=== PATIENT | male | born 1950 | race Caucasian/White ===

== ENCOUNTER 2020-10-08 13:55 | Emergency (ER) | payer MEDICARE, MEDICAID ==
--- NOTE | 2020-10-08 14:34 | EDM.PDOC ---
ED HPI GENERAL MEDICAL PROBLEM - General Chief Complaint: General Stated Complaint: pain with suprapubic cath Time Seen by Provider: 10/08/20 14:20 Source of Information: Reports: Half-Way Records, RN History Limitations: Reports: Altered Mental Status - History of Present Illness INITIAL COMMENTS - FREE TEXT/NARRATIVE: This patient is a 70 year old male that presents to the ER from the long-term. Patient was transported by long-term van staff. My report is from the FORENSICS TEAM DIRECTOR and nurse documentation from long-term. The patient has history of being nonverbal and will rarely respond with yes or no per RN. The long-term staff reports that last night they changed the suprapubic catheter of this patient. Then today, the patient was pointing at the location, so they changed it again at about 1pm. They report the catheter advanced without issue and got urine return. long-term staff reports the patent even after placement that he continued to point at the site and groan. Staff reports the patient after placement had oxygen saturation of 88% and was purse lip breathing, looked pale, diaphoretic, so they brought him to the ER. Patient is a DNR. Onset: Today Duration: Hour(s): (3) Improves with: Reports: None Worsens with: Reports: None Associated Symptoms: Reports: Diaphoresis. Denies: Fever/Chills, Nausea/Vomiting, Rash, Seizure - Related Data Allergies Allergy/AdvReac Type Severity Reaction Status Date / Time No Known Allergies Allergy Verified 10/08/20 14:09 Home Meds: Home Meds Acetaminophen [Tylenol] 650 mg PO QID 10/08/20 [History] Aspirin [Aspirin EC] 81 mg PO DAILY 10/08/20 [History] Diclofenac Sodium [Diclo Gel] 4 gm TOP BID 10/08/20 [History] Levothyroxine 112 mcg PO DAILY 10/08/20 [History] Magnesium Hydroxide [Milk of Magnesia] 30 ml PO DAILY PRN 10/08/20 [History] Sennosides/Docusate Sodium [Stool Softener-Laxative] 1 tab PO BID 10/08/20 [History] atorvaSTATin [Lipitor] 20 mg PO DAILY 10/08/20 [History] bisacodyL [Dulcolax] 10 mg RECTAL DAILY PRN 10/08/20 [History] calcitrioL [Calcitriol] 0.25 mcg PO DAILY 10/08/20 [History] lisinopriL [Lisinopril] 10 mg PO DAILY 10/08/20 [History] polyethylene glycoL 3350 [Polyethylene Glycol 3350] 17 gm PO DAILY 10/08/20 [History] traMADol HCl [Tramadol HCl] 25 mg PO BID 10/08/20 [History] Social & Family History - Tobacco Use Tobacco Use Status *Q: Unknown Ever Used Tobacco ED ROS GENERAL - Review of Systems Review Of Systems: See Below Constitutional: Reports: No Symptoms. Denies: Fever HEENT: Reports: No Symptoms Respiratory: Reports: No Symptoms Cardiovascular: Reports: No Symptoms Endocrine: Reports: No Symptoms GI/Abdominal: Reports: Abdominal Pain (pointing at catheter site per nrusing home staff) : Reports: No Symptoms Musculoskeletal: Reports: No Symptoms Skin: Reports: Diaphoresis (resolved), Change in Color (pale, resolved) Neurological: Reports: No Symptoms Psychiatric: Reports: No Symptoms Hematologic/Lymphatic: Reports: No Symptoms Immunologic: Reports: No Symptoms ED EXAM, GENERAL - Physical Exam Exam: See Below Exam Limited By: Altered Mental Status General Appearance: Obese, Other (sitting in wheelchair, nonverbal, does eye open with touch.) Eye Exam: Bilateral Eye: Normal Inspection, PERRL Ears: Normal External Exam, Normal Canal, Hearing Grossly Normal, Normal TMs Ear Exam: Bilateral Ear: Auricle Normal, Canal Normal, TM normal Nose: Normal Inspection, Normal Mucosa, No Blood Throat/Mouth: Normal Inspection, Normal Lips, Normal Gums, Normal Oropharynx, Normal Voice, No Airway Compromise Head: Atraumatic, Normocephalic Neck: Normal Inspection, Supple, Non-Tender Respiratory/Chest: No Respiratory Distress, Lungs Clear, Normal Breath Sounds, No Accessory Muscle Use Cardiovascular: Normal Peripheral Pulses, Regular Rate, Rhythm (96 on exam), No Edema, No Gallop Peripheral Pulses: 2+: Radial (L), Radial (R), Posterior Tibial (L), Posterior Tibial (R), Dorsalis Pedis (L), Dorsalis Pedis (R) GI/Abdominal: Soft, Non-Tender, Other (suprapubic catheter, in place, urine draining, bright red blood scant in catheter. ) (Male) Exam: Deferred Rectal (Males) Exam: Deferred Back Exam: Normal Inspection. No: CVA Tenderness (L), CVA Tenderness (R) Extremities: Normal Inspection, Non-Tender, No Pedal Edema, Normal Capillary Refill Neurological: Other (Nonverbal, eyes open with touch. This is patient baseline per RN and staff. Also, eye opens spontaneously. ) Psychiatric: Normal Affect, Normal Mood Skin Exam: Warm, Dry, Intact, Normal Color, No Rash Lymphatic: No Adenopathy Course - Vital Signs Last Recorded V/S: Last Vital Signs Temp 96.0 F L 10/08/20 13:55 Pulse 108 H 10/08/20 13:55 Resp 20 10/08/20 13:55 BP 156/91 H 10/08/20 13:55 Pulse Ox 98 10/08/20 13:55 - Orders/Labs/Meds Orders: Active Orders 24 hr Category Date Time Status CULTURE URINE [RM] Stat Lab 10/08/20 14:32 Received Labs: Laboratory Tests 10/08/20 10/08/20 10/08/20 Range/Units 14:07 14:07 14:07 WBC 10.2 (4.0-11.0) 10^3/uL RBC 4.63 (4.50-6.00) x10^6/uL Hgb 14.0 (14.0-18.0) g/dL Hct 42.3 (42.0-52.0) % MCV 91.4 (83.0-97.0) fL MCH 30.2 (27.0-32.0) pg MCHC 33.1 (32.0-36.0) g/dL RDW Coeff of Noe 13.2 (11.0-15.0) % Plt Count 226 (150-400) 10^3/uL Immature Gran % (Auto) 0.1 (0.0-4.9) % Neut % (Auto) 88.0 H (41-71) % Lymph % (Auto) 7.9 L (24-44) % [place] % (Auto) 3.9 (0-10) % Eos % (Auto) 0.0 (0-6) % Baso % (Auto) 0.1 (0-1) % Neut # (Auto) 8.97 H (1.80-8.00) x10^3/uL Lymph # (Auto) 0.80 (0.60-5.00) 10^3/uL [place] # (Auto) 0.40 (0.00-1.50) 10^3/uL Eos # (Auto) 0.00 (0.00-1.50) 10^3/uL Baso # (Auto) 0.01 (0.00-0.50) 10^3/uL Immature Gran # (Auto) 0.01 (0.00-0.49) 10^3/uL Sodium 138 (136-145) mEq/L Potassium 4.9 D (3.5-5.0) mEq/L Chloride 98 (98-106) mEq/L Carbon Dioxide 27 (21-32) mmol/L BUN 23 H (7-18) mg/dL Creatinine 1.4 H (0.7-1.3) mg/dL Est Cr Clr Drug Dosing 38.38 mL/min Estimated GFR (MDRD) 50 L (>=60) mL/min Glucose 165 H D (75-99) mg/dL Calcium 8.5 (8.4-10.1) mg/dL Total Bilirubin 0.7 (0.0-1.0) mg/dL AST 23 (15-37) U/L ALT 17 (12-78) U/L Alkaline Phosphatase 104 (46-116) U/L C-Reactive Protein 1.9 H (0.2-0.8) mg/dL Total Protein 8.0 (6.4-8.2) g/dL Albumin 3.2 L (3.4-5.0) g/dL Urine Color Yellow (YELLOW) Urine Appearance Slightly cloudy (CLEAR) Urine pH 5.5 (4.5-8.0) Ur Specific [place] >= 1.030 H (1.003-1.020) Urine Protein >=300 H (NEGATIVE) mg/dL Urine Glucose (UA) 250 H (NEGATIVE) mg/dL Urine Ketones Negative (NEGATIVE) mg/dL Urine Occult Blood Large H (NEGATIVE) Urine Nitrite Negative (NEGATIVE) Urine Bilirubin Negative (NEGATIVE) Urine Urobilinogen 0.2 (0.2-1.0) EU/dL Ur Leukocyte Esterase Small H (NEGATIVE) Urine RBC 40-50 H (0-5) /HPF Urine WBC 30-40 H (0-5) /HPF Urine Bacteria Moderate H (NOT SEEN) /HPF Urinalysis Comment Meds: Medications Discontinued Medications Generic Name Dose Route Start Last Admin Trade Name Freq PRN Reason Stop Dose Admin Levofloxacin 500 mg 10/08/20 14:41 Levofloxacin 500 Mg Tab PO 10/08/20 14:42 ONETIME ONE - Re-Assessments/Exams Free Text/Narrative Re-Assessment/Exam: 10/08/20 14:48 Patient has no fever, no wbc elevation, no hypotension. No changes in patient baseline mental status as reported. Patient is at long-term with nursing staff and is a DNR. Will start on PO Levaquin and discharge to the long-term. If patient mental status changes, fever, hypotension, may return if wish to do so. Patient took PO Levaquin in ER without difficulty. Departure - Departure Time of Disposition: 14:50 Disposition: Home, Self-Care 01 Condition: Fair Clinical Impression: UTI, Urinary tract infectious disease - Discharge Information *PRESCRIPTION DRUG MONITORING PROGRAM REVIEWED*: Not Applicable *COPY OF PRESCRIPTION DRUG MONITORING REPORT IN PATIENT LETTY: Not Applicable Instructions: Urinary Tract Infection, Adult, [id number] Forms: ED Department Discharge Additional Instructions: Followup with your primary care provider for recheck this week Return to the ER for worsening of condition or any emergent concerns such as change in mental status, fever, vomiting, or other concerns Urine was sent for culture, please check with primary care provider in 48 hours for results Push fluids Levaquin 500mg 1 pill once a day for 7 days total #6 no refill: Was given #1 in ER Sepsis Event Note (ED) - Evaluation Sepsis Screening Result: No Definite Risk - Focused Exam Vital Signs: Vital Signs Temp Pulse Resp BP Pulse Ox 10/08/20 13:55 96.0 F L 108 H 20 156/91 H 98 - My Orders Last 24 Hours: My Active Orders 10/08/20 14:32 CULTURE URINE [RM] Stat - Assessment/Plan Last 24 Hours: My Active Orders 10/08/20 14:32 CULTURE URINE [RM] Stat Plan: PLEASE SEE RN NOTE FOR PFSH
[2020-10-08] MEDS: Levofloxacin 500 MG Tab PO ONE (14:45)
== END 2020-10-08 15:10 | disposition home or self-care (01) ==
LOC: CC.ED 13:55
DX: N39.0 Urinary tract infection, site not specified (principal); Z79.82 Long term (current) use of aspirin; Z79.899 Other long term (current) drug therapy
CPT/HCPCS: 36415; 80053; 81001; 85025; 86140; 87086; 87088; 87186; 99283; 99284; A9270-GY

== ENCOUNTER 2021-08-22 14:13 | Inpatient (IN) | payer MEDICARE, MEDICAID ==
[2021-08-22] MEDS ORDERED: Sodium Chloride 0.9% 10 ML Syringe FLUSH PRN (17:32)
[2021-08-22] MEDS ORDERED: Ondansetron 4 MG/2 ML SDV IV PRN (17:32)
[2021-08-22] MEDS ORDERED: Acetaminophen 325 MG Tab PO PRN (17:32)
[2021-08-22] MEDS: Amoxicillin 500 MG Cap PO SCH (17:45)
[2021-08-22] MEDS: cefTAZidime 1 GM Vial IVPUSH SCH (17:45)
[2021-08-22 18:36] LABS: CHLORIDE,CL 103 mEq/L (98-106); SODIUM,NA 142 mEq/L (136-145)
[2021-08-22] MEDS ORDERED: DICLOFENAC SODIUM TOP SCH (20:00)
[2021-08-22] MEDS: Acetaminophen 325 MG Tab PO SCH (20:03)
[2021-08-22] MEDS: traMADol 50 MG Tab PO SCH (20:04)
[2021-08-22] MEDS: atorvaSTATin 10 MG Tab PO SCH (20:05)
[2021-08-22] MEDS: Nystatin Topical Powder 15 GM Bottle TOP SCH (20:06)
[2021-08-23] MEDS: Amoxicillin 500 MG Cap PO SCH ×2 (05:05→19:54)
[2021-08-23] MEDS: cefTAZidime 1 GM Vial IVPUSH SCH ×2 (05:05→19:51)
[2021-08-23] MEDS: Acetaminophen 325 MG Tab PO SCH ×4 (08:11→19:56)
[2021-08-23] MEDS: Aspirin 81 MG Tab.EC PO SCH (08:12)
[2021-08-23] MEDS: Hydrochlorothiazide 25 MG Tab PO SCH (08:12)
[2021-08-23] MEDS: Lisinopril 10 MG Tab PO SCH (08:13)
[2021-08-23] MEDS: Nystatin Topical Powder 15 GM Bottle TOP SCH ×2 (08:13→19:55)
[2021-08-23] MEDS: Levothyroxine 112 MCG Tab PO SCH (08:13)
[2021-08-23] MEDS: traMADol 50 MG Tab PO SCH ×2 (08:14→19:57)
[2021-08-23] MEDS: Calcitriol 0.25 MCG Cap PO SCH (08:14)
[2021-08-23] MEDS: Polyethylene Glycol 3350 Powder 17 GM Packet PO SCH (08:20)
[2021-08-23] MEDS: Enoxaparin 40 MG/0.4 ML Syringe SUBCUT SCH (12:08)
[2021-08-23] MEDS: atorvaSTATin 10 MG Tab PO SCH (19:55)
[2021-08-24] MEDS: cefTAZidime 1 GM Vial IVPUSH SCH (08:54)
[2021-08-24] MEDS: Nystatin Topical Powder 15 GM Bottle TOP SCH (08:57)
[2021-08-24] MEDS: Aspirin 81 MG Tab.EC PO SCH (08:58)
[2021-08-24] MEDS: Amoxicillin 500 MG Cap PO SCH (08:58)
[2021-08-24] MEDS: Calcitriol 0.25 MCG Cap PO SCH ×2 (08:58→10:27)
[2021-08-24] MEDS: Hydrochlorothiazide 25 MG Tab PO SCH (08:58)
[2021-08-24] MEDS: Acetaminophen 325 MG Tab PO SCH ×2 (08:59→12:41)
[2021-08-24] MEDS: Levothyroxine 112 MCG Tab PO SCH (08:59)
[2021-08-24] MEDS: Lisinopril 10 MG Tab PO SCH (08:59)
[2021-08-24] MEDS: traMADol 50 MG Tab PO SCH (08:59)
[2021-08-24] MEDS: Polyethylene Glycol 3350 Powder 17 GM Packet PO SCH (09:00)
[2021-08-24] MEDS: Enoxaparin 40 MG/0.4 ML Syringe SUBCUT SCH (12:38)
== END 2021-08-24 13:30 | disposition home or self-care (01) | DRG 690 ==
LOC: UNDOADMIN 14:13 → CC.MS 14:13
PROVIDERS: ADMIT Nurse Practitioner Family; ATTEND Nurse Practitioner Family
DX: N39.0 Urinary tract infection, site not specified (principal); H91.90 Unspecified hearing loss, unspecified ear; E78.00 Pure hypercholesterolemia, unspecified; I10 Essential (primary) hypertension; B96.5 Pseudomonas (aeruginosa) (mallei) (pseudomallei) as the cause of diseases classified elsewhere; I73.9 Peripheral vascular disease, unspecified; K59.09 Other constipation; N18.9 Chronic kidney disease, unspecified; N31.9 Neuromuscular dysfunction of bladder, unspecified; M19.90 Unspecified osteoarthritis, unspecified site; R62.50 Unspecified lack of expected normal physiological development in childhood; F81.9 Developmental disorder of scholastic skills, unspecified; E03.9 Hypothyroidism, unspecified; B95.2 Enterococcus as the cause of diseases classified elsewhere; Z79.82 Long term (current) use of aspirin; Z79.899 Other long term (current) drug therapy; Z79.890 Hormone replacement therapy
CPT/HCPCS: 36415; 80053; 85025; 86140; 99223; 99233; 99239; A9270-GY; J0713; J1650

== ENCOUNTER → 2022-09-12 | Day surgery (SDC) | payer MEDICARE, MEDICAID ==
[~2022-09-12] MED LIST: Flumazenil 0.1 MG/ML 10 ML MDV ONE; Labetalol 100 MG/20 ML MDV ONE; Lidocaine 2% 5 ML SDV ONE; Midazolam 1 MG/ML 2 ML SDV ONE; Naloxone 2 MG/2 ML Syringe ONE; Phenylephrine 1% 10 MG/ML SDV ONE; Propofol 200 MG/20 ML SDV ONE; Succinylcholine 200 MG/10 ML MDV ONE; fentaNYL 50 MCG/ML SDV ONE
[2022-09-12] MEDS: Lactated Ringers 1,000 ML IV SCH (11:22)
== END ==
LOC: CC.SDS 10:17
PROVIDERS: ATTEND Dentist General Practice
DX: K02.9 Dental caries, unspecified (principal); E78.5 Hyperlipidemia, unspecified; E83.51 Hypocalcemia; E03.9 Hypothyroidism, unspecified; R41.82 Altered mental status, unspecified; N32.81 Overactive bladder; Z79.82 Long term (current) use of aspirin; Z79.899 Other long term (current) drug therapy; Z79.890 Hormone replacement therapy
CPT/HCPCS: 00170; 99100; J0330; J2250; J2310; J2370; J2704; J3010; J3490; J7120

== ENCOUNTER 2022-12-14 11:40 | Emergency (ER) | payer MEDICARE, MEDICAID ==
[2022-12-14 12:18] LABS: BASOPHILS ABSOLUTE AUTO 0.03 10^3/uL (0.00-0.50); BASOPHILS PERCENT AUTO 0.6 % (0-1); EOSINOPHILS ABSOLUTE AUTO 0.01 10^3/uL (0.00-1.50); EOSINOPHILS PERCENT AUTO 0.2 % (0-6); HEMATOCRIT 50.5 % (42.0-52.0); HEMOGLOBIN 16.9 g/dL (14.0-18.0); LYMPHOCYTES ABSOLUTE AUTO 1.79 10^3/uL (0.60-5.00); LYMPHOCYTES PERCENT AUTO 34.6 % (24-44); MEAN CORPUSCULAR HEMOGLOBIN 28.9 pg (27.0-32.0); MEAN CORPUSCULAR HGB CONC 33.5 g/dL (32.0-36.0); MEAN CORPUSCULAR VOLUME 86.5 fL (83.0-97.0); MONOCYTES ABSOLUTE AUTO 0.86 10^3/uL (0.00-1.50); MONOCYTES PERCENT AUTO 16.6 % (0-10); NEUTROPHILS ABSOLUTE AUTO 2.49 x10^3/uL (1.80-8.00); PLATELET COUNT,PLT 168 10^3/uL (150-400); RED BLOOD CELL COUNT 5.84 x10^6/uL (4.50-6.00); WHITE BLOOD CELL COUNT,WBC 5.2 10^3/uL (4.0-11.0)
[2022-12-14 12:41] LABS: ALANINE AMINOTRANSFERASE,ALT 75 U/L (12-78); ALBUMIN 3.4 g/dL (3.4-5.0); ALKALINE PHOSPHATASE 95 U/L (46-116); ASPARTATE AMNIOTRANSFERASE,AST 79 U/L (15-37); BILIRUBIN TOTAL 0.4 mg/dL (0.0-1.0); BLOOD UREA NITROGEN,BUN 30 mg/dL (7-18); C-REACTIVE PROTEIN 4.19 mg/dL (<=0.30); CARBON DIOXIDE,CO2 28 mmol/L (21-32); CHLORIDE,CL 99 mEq/L (98-106); CREATININE 1.8 mg/dL (0.7-1.3); ESTIMATED GFR 39 mL/min (>=60); GLUCOSE RANDOM 136 mg/dL (75-99); MAGNESIUM 2.1 mg/dL (1.8-2.4); PROTEIN TOTAL,TP 8.4 g/dL (6.4-8.2); SODIUM,NA 138 mEq/L (136-145)
[2022-12-14 13:41] LABS: APPEARANCE,URINE CLEAR (CLEAR); BILIRUBIN,URINE NEGATIVE (NEGATIVE); COLOR,URINE YELLOW (YELLOW); GLUCOSE,URINE NEGATIVE (NEGATIVE); KETONES,URINE NEGATIVE (NEGATIVE); LEUKOCYTE ESTERASE,URINE SMALL (NEGATIVE); NITRITE,URINE NEGATIVE (NEGATIVE); OCCULT BLOOD,URINE LARGE (NEGATIVE); PH,URINE 5.5 (4.5-8.0); PROTEIN,URINE 100 mg/dL (NEGATIVE); UROBILINOGEN,URINE 0.2 EU/dL (0.2-1.0)
[2022-12-14 13:49] LABS: BACTERIA,URINE OCCASIONAL /HPF (NOT SEEN); EPITHELIAL CELLS,URINE OCCASIONAL /HPF (NOT SEEN); RBC,URINE 50-75 /HPF (0-5); WBC,URINE 0-5 /HPF (0-5)
[2022-12-14] MEDS: cefTRIAXone 1 GM Vial IVPUSH ONE (14:09)
[2022-12-14] MEDS: Sodium Chloride 0.9% 500 ML IV SCH (14:09)
[2022-12-14] MEDS: Take Home: Nitrofurantoin Monohydrate/Macrocrystalline 100 MG, 6 Cap Pack PO ONE (14:30)
== END 2022-12-14 14:35 | disposition home or self-care (01) ==
LOC: CC.ED 11:40
DX: N39.0 Urinary tract infection, site not specified (principal); E78.00 Pure hypercholesterolemia, unspecified; I12.9 Hypertensive chronic kidney disease with stage 1 through stage 4 chronic kidney disease, or unspecified chronic kidney disease; N18.9 Chronic kidney disease, unspecified; M19.90 Unspecified osteoarthritis, unspecified site; E03.9 Hypothyroidism, unspecified; Z79.899 Other long term (current) drug therapy; Z79.82 Long term (current) use of aspirin
CPT/HCPCS: 36415; 71045; 80053; 81001; 83605; 83735; 85025; 86140; 87040; 87077; 96374; 99284; 99285-25; A9270-GY; J0696; J7040

== ENCOUNTER 2023-06-21 14:07 | Emergency (ER) | payer MEDICARE, MEDICAID ==
[2023-06-21 14:56] LABS: BASOPHILS ABSOLUTE AUTO 0.03 10^3/uL (0.00-0.50); BASOPHILS PERCENT AUTO 0.6 % (0-1); EOSINOPHILS ABSOLUTE AUTO 0.01 10^3/uL (0.00-1.50); EOSINOPHILS PERCENT AUTO 0.2 % (0-6); HEMATOCRIT 50.4 % (42.0-52.0); HEMOGLOBIN 16.5 g/dL (14.0-18.0); LYMPHOCYTES ABSOLUTE AUTO 1.86 10^3/uL (0.60-5.00); LYMPHOCYTES PERCENT AUTO 37.1 % (24-44); MEAN CORPUSCULAR HEMOGLOBIN 29.8 pg (27.0-32.0); MEAN CORPUSCULAR HGB CONC 32.7 g/dL (32.0-36.0); MEAN CORPUSCULAR VOLUME 91.1 fL (83.0-97.0); MONOCYTES ABSOLUTE AUTO 0.75 10^3/uL (0.00-1.50); NEUTROPHILS ABSOLUTE AUTO 2.36 x10^3/uL (1.80-8.00); NEUTROPHILS PERCENT AUTO 47.1 % (41-71); PLATELET COUNT,PLT 153 10^3/uL (150-400); RED BLOOD CELL COUNT 5.53 x10^6/uL (4.50-6.00)
[2023-06-21 15:09] LABS: ALBUMIN 3.1 g/dL (3.4-5.0); BILIRUBIN TOTAL 0.5 mg/dL (0.0-1.0); C-REACTIVE PROTEIN 3.51 mg/dL (<=0.50); CREATININE 1.4 mg/dL (0.7-1.3); EST CRCL DRUG DOSING (CG) 35.75 mL/min; POTASSIUM,K 3.7 mEq/L (3.5-5.0); PROTEIN TOTAL,TP 8.1 g/dL (6.4-8.2)
[2023-06-21 15:16] LABS: CALCIUM 8.7 mg/dL (8.4-10.1)
[2023-06-21 16:03] LABS: APPEARANCE,URINE SLIGHTLY CLOUDY (CLEAR); BILIRUBIN,URINE NEGATIVE (NEGATIVE); COLOR,URINE YELLOW (YELLOW); GLUCOSE,URINE NEGATIVE (NEGATIVE); KETONES,URINE NEGATIVE (NEGATIVE); LEUKOCYTE ESTERASE,URINE LARGE (NEGATIVE); NITRITE,URINE POSITIVE (NEGATIVE); OCCULT BLOOD,URINE LARGE (NEGATIVE); PH,URINE >= 9.0 (4.5-8.0); PROTEIN,URINE >=300 mg/dL (NEGATIVE); UROBILINOGEN,URINE 0.2 EU/dL (0.2-1.0)
[2023-06-21] MEDS: Sulfamethoxazole/Trimethoprim 800-160 MG Tab PO ONE (16:10)
[2023-06-21 16:16] LABS: BACTERIA,URINE MANY /HPF (NOT SEEN); EPITHELIAL CELLS,URINE RARE /HPF (NOT SEEN); RBC,URINE 20-30 /HPF (0-5); WBC,URINE 40-50 /HPF (0-5); YEAST,URINE FEW /HPF (NOT SEEN)
[2023-06-21] MEDS: Take Home: Sulfamethoxazole/Trimethoprim 800-160 MG Tab, 6 Tab Pack PO ONE (16:33)
== END 2023-06-21 16:40 | disposition home or self-care (01) ==
LOC: CC.ED 14:07
DX: N30.01 Acute cystitis with hematuria (principal); I10 Essential (primary) hypertension; E78.00 Pure hypercholesterolemia, unspecified; M19.90 Unspecified osteoarthritis, unspecified site; E03.9 Hypothyroidism, unspecified; Z79.82 Long term (current) use of aspirin; Z79.899 Other long term (current) drug therapy
CPT/HCPCS: 36415; 71045; 80053; 81001; 83605; 83735; 85025; 86140; 87040; 87086; 87088; 87186; 87804; 99284; A9270-GY; U0002

== ENCOUNTER 2023-12-28 09:55 | Inpatient (IN) | payer MEDICARE, MEDICAID ==
[2023-12-28 10:16] LABS: BASOPHILS ABSOLUTE AUTO 0.07 10^3/uL (0.00-0.50); BASOPHILS PERCENT AUTO 0.3 % (0-1); HEMATOCRIT 52.2 % (42.0-52.0); HEMOGLOBIN 15.9 g/dL (14.0-18.0); IMMATURE GRAN ABSOLUTE AUTO 0.21 10^3/uL (0.00-0.49); IMMATURE GRAN PERCENT AUTO 0.9 % (0.0-4.9); LYMPHOCYTES ABSOLUTE AUTO 3.88 10^3/uL (0.60-5.00); LYMPHOCYTES PERCENT AUTO 17.2 % (24-44); MEAN CORPUSCULAR HEMOGLOBIN 28.7 pg (27.0-32.0); MEAN CORPUSCULAR HGB CONC 30.5 g/dL (32.0-36.0); MEAN CORPUSCULAR VOLUME 94.2 fL (83.0-97.0); MONOCYTES ABSOLUTE AUTO 1.18 10^3/uL (0.00-1.50); MONOCYTES PERCENT AUTO 5.2 % (0-10); NEUTROPHILS ABSOLUTE AUTO 17.21 x10^3/uL (1.80-8.00); NEUTROPHILS PERCENT AUTO 76.4 % (41-71); PLATELET COUNT,PLT 243 10^3/uL (150-400); RED BLOOD CELL COUNT 5.54 x10^6/uL (4.50-6.00)
[2023-12-28 10:24] LABS: WHITE BLOOD CELL COUNT,WBC 22.6 10^3/uL (4.0-11.0)
[2023-12-28 10:30] LABS: ALBUMIN 2.5 g/dL (3.4-5.0); BILIRUBIN TOTAL 0.8 mg/dL (0.0-1.0); C-REACTIVE PROTEIN 20.74 mg/dL (<=0.50); CALCIUM 8.9 mg/dL (8.4-10.1); EST CRCL DRUG DOSING (CG) 12.97 mL/min; PROTEIN TOTAL,TP 9.1 g/dL (6.4-8.2)
[2023-12-28 10:34] LABS: CREATININE 3.8 mg/dL (0.7-1.3)
[2023-12-28] MEDS: Sodium Chloride 0.45% 1,000 ML IV SCH ×3 (11:18→13:50)
[2023-12-28] MEDS: Piperacillin/Tazobactam 4.5 GM in Sodium Chloride 0.9% 100 ML IV ONE (11:24)
[2023-12-28] MEDS ORDERED: traMADol 50 MG Tab PO PRN (11:34)
[2023-12-28] MEDS ORDERED: Ondansetron 4 MG/2 ML SDV IV PRN (11:34)
[2023-12-28] MEDS ORDERED: Ondansetron 4 MG Tab.DIS PO PRN (11:34)
[2023-12-28] MEDS ORDERED: Bisacodyl 10 MG Supp RECTAL PRN (11:34)
[2023-12-28] MEDS: Sodium Chloride 0.9% 1,000 ML IV ONE (12:07)
[2023-12-28] MEDS: methylPREDNISolone Sodium Succinate 125 MG/2 ML SDV IVPUSH SCH (12:13)
[2023-12-28] MEDS: Albuterol/Ipratropium 3.0-0.5 MG/3 ML Neb Soln NEB SCH (12:13)
[2023-12-28] MEDS: Piperacillin/Tazobactam 4.5 GM in Sodium Chloride 0.9% 100 ML IV SCH (16:23)
[2023-12-28] MEDS: Acetaminophen 325 MG Tab PO PRN (16:36)
[2023-12-28] MEDS: Enoxaparin 30 MG/0.3 ML Syringe SUBCUT SCH (19:44)
[2023-12-28] MEDS: Nystatin Crm 30 GM Tube TOP SCH (19:49)
[2023-12-28] MEDS: Acetaminophen 650 MG Supp RECTAL PRN (20:28)
[2023-12-28] MEDS: Baclofen 10 MG Tab PO SCH (23:47)
[2023-12-28] MEDS: traMADol 50 MG Tab PO SCH (23:47)
[2023-12-28] MEDS: Sennosides 8.6 MG Tab PO SCH (23:47)
[2023-12-28] MEDS: atorvaSTATin 10 MG Tab PO SCH (23:47)
[2023-12-28] MEDS: Diclofenac Sodium 1% Gel 100 GM Tube TOP SCH (23:49)
[2023-12-29] MEDS: VANCOmycin 2 GM/400 ML 2 GM in Premix Bag 1 BAG IV ONE (01:09)
[2023-12-29] MEDS: Levothyroxine 112 MCG Tab PO SCH (06:20)
[2023-12-29 08:10] LABS: BASOPHILS ABSOLUTE AUTO 0.01 10^3/uL (0.00-0.50); BASOPHILS PERCENT AUTO 0.1 % (0-1); HEMOGLOBIN 12.6 g/dL (14.0-18.0); IMMATURE GRAN ABSOLUTE AUTO 0.24 10^3/uL (0.00-0.49); IMMATURE GRAN PERCENT AUTO 1.5 % (0.0-4.9); LYMPHOCYTES ABSOLUTE AUTO 1.68 10^3/uL (0.60-5.00); LYMPHOCYTES PERCENT AUTO 10.7 % (24-44); MEAN CORPUSCULAR HEMOGLOBIN 28.6 pg (27.0-32.0); MEAN CORPUSCULAR VOLUME 95.2 fL (83.0-97.0); MONOCYTES ABSOLUTE AUTO 0.31 10^3/uL (0.00-1.50); NEUTROPHILS ABSOLUTE AUTO 13.41 x10^3/uL (1.80-8.00); NEUTROPHILS PERCENT AUTO 85.7 % (41-71); PLATELET COUNT,PLT 173 10^3/uL (150-400); RED BLOOD CELL COUNT 4.41 x10^6/uL (4.50-6.00); WHITE BLOOD CELL COUNT,WBC 15.7 10^3/uL (4.0-11.0)
[2023-12-29 08:25] LABS: APPEARANCE,URINE CLEAR (CLEAR); BILIRUBIN,URINE NEGATIVE (NEGATIVE); COLOR,URINE YELLOW (YELLOW); GLUCOSE,URINE NEGATIVE (NEGATIVE); KETONES,URINE NEGATIVE (NEGATIVE); LEUKOCYTE ESTERASE,URINE MODERATE (NEGATIVE); NITRITE,URINE NEGATIVE (NEGATIVE); OCCULT BLOOD,URINE MODERATE (NEGATIVE); PROTEIN,URINE NEGATIVE (NEGATIVE); UROBILINOGEN,URINE 0.2 EU/dL (0.2-1.0)
[2023-12-29 08:39] LABS: AMORPHOUS SEDIMENT,URINE MODERATE /HPF (NOT SEEN); BACTERIA,URINE MODERATE /HPF (NOT SEEN); EPITHELIAL CELLS,URINE OCCASIONAL /HPF (NOT SEEN); RBC,URINE 0-5 /HPF (0-5); WBC,URINE 20-30 /HPF (0-5)
[2023-12-29 08:40] LABS: ALBUMIN 1.5 g/dL (3.4-5.0); BILIRUBIN TOTAL 0.5 mg/dL (0.0-1.0); C-REACTIVE PROTEIN 21.43 mg/dL (<=0.50); CALCIUM 7.5 mg/dL (8.4-10.1); EST CRCL DRUG DOSING (CG) 12.32 mL/min; POTASSIUM,K 3.7 mEq/L (3.5-5.0); PROTEIN TOTAL,TP 6.9 g/dL (6.4-8.2)
[2023-12-29] MEDS: Calcium Carbonate/Vitamin D3 1250 MG-5 MCG Tab PO SCH (09:35)
[2023-12-29] MEDS: Loratadine 10 MG Tab PO SCH (09:35)
[2023-12-29] MEDS: Polyethylene Glycol 3350 Powder 17 GM Packet PO SCH (09:36)
[2023-12-29] MEDS: Calcitriol 0.25 MCG Cap PO SCH (09:36)
[2023-12-29] MEDS: Lisinopril 5 MG Tab PO SCH (09:36)
[2023-12-29] MEDS: Aspirin 81 MG Tab.EC PO SCH (09:37)
[2023-12-29] MEDS ORDERED: Naloxone 2 MG/2 ML Syringe IVPUSH PRN (12:38)
[2023-12-29] MEDS: Lactated Ringers 1,000 ML IV SCH (12:48)
[2023-12-30] MEDS: Morphine 2 MG/ML SYRINGE IVPUSH PRN (00:32)
[2023-12-30 07:44] LABS: HEMATOCRIT 39.1 % (42.0-52.0); HEMOGLOBIN 12.3 g/dL (14.0-18.0); IMMATURE GRAN ABSOLUTE AUTO 0.11 10^3/uL (0.00-0.49); IMMATURE GRAN PERCENT AUTO 0.6 % (0.0-4.9); LYMPHOCYTES ABSOLUTE AUTO 1.34 10^3/uL (0.60-5.00); LYMPHOCYTES PERCENT AUTO 7.7 % (24-44); MEAN CORPUSCULAR HEMOGLOBIN 28.6 pg (27.0-32.0); MEAN CORPUSCULAR HGB CONC 31.5 g/dL (32.0-36.0); MEAN CORPUSCULAR VOLUME 90.9 fL (83.0-97.0); MONOCYTES ABSOLUTE AUTO 0.32 10^3/uL (0.00-1.50); MONOCYTES PERCENT AUTO 1.8 % (0-10); NEUTROPHILS ABSOLUTE AUTO 15.54 x10^3/uL (1.80-8.00); NEUTROPHILS PERCENT AUTO 89.9 % (41-71); PLATELET COUNT,PLT 192 10^3/uL (150-400); WHITE BLOOD CELL COUNT,WBC 17.3 10^3/uL (4.0-11.0)
[2023-12-30 08:58] LABS: BILIRUBIN TOTAL 0.3 mg/dL (0.0-1.0); C-REACTIVE PROTEIN 10.99 mg/dL (<=0.50); CALCIUM 7.4 mg/dL (8.4-10.1); EST CRCL DRUG DOSING (CG) 14.5 mL/min; POTASSIUM,K 3.3 mEq/L (3.5-5.0); PROTEIN TOTAL,TP 6.9 g/dL (6.4-8.2)
[2023-12-30 09:04] LABS: CREATININE 3.4 mg/dL (0.7-1.3)
[2023-12-30] MEDS: Potassium Chloride 20 MEQ Tab.ER PO ONE (17:40)
[2023-12-31 08:16] LABS: HEMOGLOBIN 12.6 g/dL (14.0-18.0); IMMATURE GRAN ABSOLUTE AUTO 0.15 10^3/uL (0.00-0.49); IMMATURE GRAN PERCENT AUTO 1.4 % (0.0-4.9); LYMPHOCYTES ABSOLUTE AUTO 1.16 10^3/uL (0.60-5.00); LYMPHOCYTES PERCENT AUTO 10.7 % (24-44); MEAN CORPUSCULAR HEMOGLOBIN 28.6 pg (27.0-32.0); MEAN CORPUSCULAR HGB CONC 31.5 g/dL (32.0-36.0); MEAN CORPUSCULAR VOLUME 90.7 fL (83.0-97.0); MONOCYTES ABSOLUTE AUTO 0.29 10^3/uL (0.00-1.50); MONOCYTES PERCENT AUTO 2.7 % (0-10); NEUTROPHILS ABSOLUTE AUTO 9.23 x10^3/uL (1.80-8.00); NEUTROPHILS PERCENT AUTO 85.2 % (41-71); PLATELET COUNT,PLT 206 10^3/uL (150-400); RED BLOOD CELL COUNT 4.41 x10^6/uL (4.50-6.00); WHITE BLOOD CELL COUNT,WBC 10.8 10^3/uL (4.0-11.0)
[2023-12-31 10:54] LABS: BILIRUBIN TOTAL 0.3 mg/dL (0.0-1.0); C-REACTIVE PROTEIN 6.18 mg/dL (<=0.50); CALCIUM 7.5 mg/dL (8.4-10.1); EST CRCL DRUG DOSING (CG) 18.26 mL/min; POTASSIUM,K 3.3 mEq/L (3.5-5.0)
[2023-12-31 10:58] LABS: CREATININE 2.7 mg/dL (0.7-1.3)
[2023-12-31] MEDS: Menthol/Zinc Oxide Ointment 113 GM Tube TOP ONE (11:18)
[2023-12-31 15:57] LABS: ALBUMIN 2.2 g/dL (3.4-5.0)
[2023-12-31 17:07] LABS: ALBUMIN 2.1 g/dL (3.4-5.0)
[2023-12-31] MEDS: Potassium Chloride 20 MEQ Packet PO SCH (18:01)
[2024-01-01] MEDS: Menthol/Zinc Oxide Ointment 113 GM Tube TOP PRN (02:52)
[2024-01-01 07:58] LABS: HEMATOCRIT 42.4 % (42.0-52.0); HEMOGLOBIN 13.1 g/dL (14.0-18.0); IMMATURE GRAN ABSOLUTE AUTO 0.14 10^3/uL (0.00-0.49); IMMATURE GRAN PERCENT AUTO 1.2 % (0.0-4.9); LYMPHOCYTES ABSOLUTE AUTO 1.08 10^3/uL (0.60-5.00); LYMPHOCYTES PERCENT AUTO 9.3 % (24-44); MEAN CORPUSCULAR HEMOGLOBIN 28.7 pg (27.0-32.0); MEAN CORPUSCULAR HGB CONC 30.9 g/dL (32.0-36.0); MEAN CORPUSCULAR VOLUME 92.8 fL (83.0-97.0); MONOCYTES ABSOLUTE AUTO 0.23 10^3/uL (0.00-1.50); NEUTROPHILS ABSOLUTE AUTO 10.19 x10^3/uL (1.80-8.00); NEUTROPHILS PERCENT AUTO 87.5 % (41-71); PLATELET COUNT,PLT 196 10^3/uL (150-400); RED BLOOD CELL COUNT 4.57 x10^6/uL (4.50-6.00); WHITE BLOOD CELL COUNT,WBC 11.6 10^3/uL (4.0-11.0)
[2024-01-01 08:11] LABS: ALBUMIN 2.3 g/dL (3.4-5.0); BILIRUBIN TOTAL 0.5 mg/dL (0.0-1.0); C-REACTIVE PROTEIN 3.57 mg/dL (<=0.50); CALCIUM 7.7 mg/dL (8.4-10.1); CREATININE 2.3 mg/dL (0.7-1.3); EST CRCL DRUG DOSING (CG) 21.43 mL/min
[2024-01-01] MEDS ORDERED: Glucagon,Human Recombinant 1 MG Vial IM PRN (08:49)
[2024-01-01] MEDS ORDERED: 50% Dextrose in Water 50 ML Syringe IVPUSH PRN (08:49)
[2024-01-01] MEDS: Dextrose 5% in Water 1,000 ML IV SCH (09:06)
[2024-01-01] MEDS: Insulin Lispro 100 Units/ML 3 ML Vial SUBCUT SCH (11:52)
[2024-01-02 06:59] VITALS: BP 140/80; PULSE 98
[2024-01-02 07:53] LABS: HEMATOCRIT 38.7 % (42.0-52.0); HEMOGLOBIN 12.1 g/dL (14.0-18.0); IMMATURE GRAN PERCENT AUTO 1.4 % (0.0-4.9); LYMPHOCYTES ABSOLUTE AUTO 1.67 10^3/uL (0.60-5.00); LYMPHOCYTES PERCENT AUTO 11.6 % (24-44); MEAN CORPUSCULAR HEMOGLOBIN 28.9 pg (27.0-32.0); MEAN CORPUSCULAR HGB CONC 31.3 g/dL (32.0-36.0); MEAN CORPUSCULAR VOLUME 92.4 fL (83.0-97.0); MONOCYTES ABSOLUTE AUTO 0.46 10^3/uL (0.00-1.50); MONOCYTES PERCENT AUTO 3.2 % (0-10); NEUTROPHILS ABSOLUTE AUTO 12.09 x10^3/uL (1.80-8.00); NEUTROPHILS PERCENT AUTO 83.8 % (41-71); PLATELET COUNT,PLT 243 10^3/uL (150-400); RED BLOOD CELL COUNT 4.19 x10^6/uL (4.50-6.00); WHITE BLOOD CELL COUNT,WBC 14.4 10^3/uL (4.0-11.0)
[2024-01-02 08:09] LABS: ALBUMIN 1.9 g/dL (3.4-5.0); BILIRUBIN TOTAL 0.4 mg/dL (0.0-1.0); CALCIUM 7.4 mg/dL (8.4-10.1); CREATININE 1.8 mg/dL (0.7-1.3); EST CRCL DRUG DOSING (CG) 27.38 mL/min; POTASSIUM,K 4.8 mEq/L (3.5-5.0); PROTEIN TOTAL,TP 6.1 g/dL (6.4-8.2)
[2024-01-02] MEDS ORDERED: Loperamide 2 MG Cap PO PRN (10:38)
[2024-01-02] MEDS: Loperamide 2 MG Cap PO ONE (11:14)
== END 2024-01-02 13:50 | disposition home or self-care (01) | DRG 871 ==
LOC: CC.ED 09:55 → CC.MS 10:38 → UNDOADMIN 10:45
PROVIDERS: ADMIT Physician Assistant Medical; ATTEND Physician Assistant Medical
DX: A41.9 Sepsis, unspecified organism (principal); J18.9 Pneumonia, unspecified organism; R65.21 Severe sepsis with septic shock; N17.9 Acute kidney failure, unspecified; E87.0 Hyperosmolality and hypernatremia; N30.01 Acute cystitis with hematuria; E87.20 Acidosis, unspecified; Z66 Do not resuscitate; I12.9 Hypertensive chronic kidney disease with stage 1 through stage 4 chronic kidney disease, or unspecified chronic kidney disease; E78.00 Pure hypercholesterolemia, unspecified; K59.09 Other constipation; E03.9 Hypothyroidism, unspecified; M19.90 Unspecified osteoarthritis, unspecified site; N18.32 Chronic kidney disease, stage 3b; H91.90 Unspecified hearing loss, unspecified ear; L89.309 Pressure ulcer of unspecified buttock, unspecified stage; L89.159 Pressure ulcer of sacral region, unspecified stage; D72.829 Elevated white blood cell count, unspecified; R79.89 Other specified abnormal findings of blood chemistry; Z79.82 Long term (current) use of aspirin; Z79.890 Hormone replacement therapy; Z79.899 Other long term (current) drug therapy
CPT/HCPCS: 36415; 71045; 80053; 80202; 81001; 82947; 83605; 85025; 86140; 87040; 87086; 87493; 94640; 97161-GP; 99223; 99232; 99233; 99238; 99285; A9270-GY; J1650; J1815-GY; J2270; J2543; J2919; J3370; J3372; J3490; J7030; J7050; J7060; J7120; J7620-GY

== ENCOUNTER 2024-01-21 10:15 | Inpatient (IN) | payer MEDICARE, MEDICAID ==
[2024-01-21 10:48] LABS: APPEARANCE,URINE SLIGHTLY CLOUDY (CLEAR); BILIRUBIN,URINE NEGATIVE (NEGATIVE); COLOR,URINE YELLOW (YELLOW); GLUCOSE,URINE NEGATIVE (NEGATIVE); KETONES,URINE NEGATIVE (NEGATIVE); LEUKOCYTE ESTERASE,URINE SMALL (NEGATIVE); NITRITE,URINE POSITIVE (NEGATIVE); OCCULT BLOOD,URINE MODERATE (NEGATIVE); PROTEIN,URINE 100 mg/dL (NEGATIVE); UROBILINOGEN,URINE 0.2 EU/dL (0.2-1.0)
[2024-01-21] MEDS: Sodium Chloride 0.9% 1,000 ML IV ONE (10:50)
[2024-01-21] MEDS: Acetaminophen 650 MG Supp RECTAL ONE (10:54)
[2024-01-21 10:56] LABS: LACTIC ACID 1.6 mmol/L (0.4-2.0)
[2024-01-21] MEDS: VANCOmycin 1.5 GM/300 ML 1.5 GM in Premix Bag 1 BAG IV STA (11:00)
[2024-01-21 11:01] LABS: BACTERIA,URINE FEW /HPF (NOT SEEN); EPITHELIAL CELLS,URINE NOT SEEN /HPF (NOT SEEN); MUCUS,URINE FEW /HPF (NOT SEEN); WBC,URINE 50-75 /HPF (0-5)
[2024-01-21 11:02] LABS: BASOPHILS ABSOLUTE AUTO 0.03 10^3/uL (0.00-0.50); BASOPHILS PERCENT AUTO 0.3 % (0-1); HEMATOCRIT 31.6 % (42.0-52.0); HEMOGLOBIN 9.4 g/dL (14.0-18.0); IMMATURE GRAN ABSOLUTE AUTO 0.01 10^3/uL (0.00-0.49); IMMATURE GRAN PERCENT AUTO 0.1 % (0.0-4.9); LYMPHOCYTES ABSOLUTE AUTO 2.26 10^3/uL (0.60-5.00); LYMPHOCYTES PERCENT AUTO 25.7 % (24-44); MEAN CORPUSCULAR HEMOGLOBIN 29.7 pg (27.0-32.0); MEAN CORPUSCULAR HGB CONC 29.7 g/dL (32.0-36.0); MONOCYTES ABSOLUTE AUTO 0.55 10^3/uL (0.00-1.50); MONOCYTES PERCENT AUTO 6.3 % (0-10); NEUTROPHILS ABSOLUTE AUTO 5.93 x10^3/uL (1.80-8.00); NEUTROPHILS PERCENT AUTO 67.6 % (41-71); PLATELET COUNT,PLT 242 10^3/uL (150-400); RED BLOOD CELL COUNT 3.16 x10^6/uL (4.50-6.00); WHITE BLOOD CELL COUNT,WBC 8.8 10^3/uL (4.0-11.0)
[2024-01-21 11:05] LABS: BILIRUBIN TOTAL 0.3 mg/dL (0.0-1.0); C-REACTIVE PROTEIN 15.06 mg/dL (<=0.50); CALCIUM 7.9 mg/dL (8.4-10.1); EST CRCL DRUG DOSING (CG) 9.81 mL/min; MAGNESIUM 2.8 mg/dL (1.8-2.4); POTASSIUM,K 5.1 mEq/L (3.5-5.0); PROTEIN TOTAL,TP 7.1 g/dL (6.4-8.2)
[2024-01-21 11:08] LABS: CREATININE 4.6 mg/dL (0.7-1.3)
[2024-01-21 11:12] LABS: CORONAVIRUS COVID-19 NAA NEGATIVE (NEGATIVE); INFLUENZA A NAA NEGATIVE (NEGATIVE); INFLUENZA B NAA NEGATIVE (NEGATIVE); RESPIRATORY SYNCYTIAL VIR NAA NEGATIVE (NEGATIVE)
[2024-01-21] MEDS: Piperacillin/Tazobactam 4.5 GM in Sodium Chloride 0.9% 100 ML IV ONE (11:40)
[2024-01-21] MEDS: Lactated Ringers 1,000 ML IV ONE (12:28)
[2024-01-21] MEDS: Lactated Ringers 1,000 ML ONE (12:29)
[2024-01-21] MEDS ORDERED: Ondansetron 4 MG/2 ML SDV IV PRN (15:02)
[2024-01-21] MEDS ORDERED: Piperacillin/Tazobactam 4.5 GM in Sodium Chloride 0.9% 100 ML IV SCH (15:02)
[2024-01-21] MEDS ORDERED: Morphine 2 MG/ML SYRINGE IVPUSH PRN (15:02)
[2024-01-21] MEDS ORDERED: Acetaminophen 650 MG Supp RECTAL PRN (15:02)
[2024-01-21] MEDS ORDERED: Ondansetron 4 MG Tab.DIS PO PRN (15:02)
[2024-01-21] MEDS: Piperacillin/Tazobactam 4.5 GM in Sodium Chloride 0.9% 100 ML IV SCH (15:15)
[2024-01-21] MEDS ORDERED: Lactated Ringers 1,000 ML IV SCH (15:15)
[2024-01-21] MEDS ORDERED: LORazepam 2 MG/ML SDV IVPUSH PRN (19:32)
[2024-01-21] MEDS: Morphine 2 MG/ML SYRINGE IVPUSH PRN (19:54)
[2024-01-21] MEDS: Atropine 1% Ophth Soln 5 ML Bottle SL PRN (19:54)
== END 2024-01-22 06:30 | disposition expired | DRG 871 ==
LOC: CC.ED 10:15 → SUPCPDRO 10:15 → CC.MS 12:22 → UNDOADMIN 12:39
PROVIDERS: ADMIT Nurse Practitioner Family; ATTEND Nurse Practitioner Family
DX: A41.9 Sepsis, unspecified organism (principal); J18.9 Pneumonia, unspecified organism; R65.21 Severe sepsis with septic shock; I95.9 Hypotension, unspecified; N17.9 Acute kidney failure, unspecified; N30.01 Acute cystitis with hematuria; Z66 Do not resuscitate; Z51.5 Encounter for palliative care; K59.09 Other constipation; I12.9 Hypertensive chronic kidney disease with stage 1 through stage 4 chronic kidney disease, or unspecified chronic kidney disease; N18.32 Chronic kidney disease, stage 3b; N18.9 Chronic kidney disease, unspecified; H91.90 Unspecified hearing loss, unspecified ear; M19.90 Unspecified osteoarthritis, unspecified site; N31.9 Neuromuscular dysfunction of bladder, unspecified; R62.50 Unspecified lack of expected normal physiological development in childhood; E78.00 Pure hypercholesterolemia, unspecified; E03.9 Hypothyroidism, unspecified; Z79.82 Long term (current) use of aspirin; Z79.899 Other long term (current) drug therapy; Z79.890 Hormone replacement therapy
CPT/HCPCS: 0241U; 36415; 71045; 80053; 81001; 83605; 83735; 85025; 86140; 87040; 87086; 87088; 87186; 93005; 93010; 96361; 96365; 99223; 99238; 99285; A9270-GY; J2270; J2543; J3372; J3490; J7030; J7120